=== PATIENT | male | born 1980 | race Caucasian/White ===

== ENCOUNTER 2020-02-15 22:49 | Emergency (ER) | payer OTHER ==
[~2020-02-15] VITALS: Ht 182.9 cm; Wt 81.6 kg
[2020-02-15 23:33] VITALS: BP 115/75
--- NOTE | 2020-02-15 23:41 | NUR ---
PT LEFT BEFORE RECEIVING DICHARGE INSTRUCTIONS
== END 2020-02-15 23:42 | disposition home or self-care (01) ==
LOC: ER 22:49
DX: T63.391A Toxic effect of venom of other spider, accidental (unintentional), initial encounter (principal); L03.114 Cellulitis of left upper limb; Y92.89 Other specified places as the place of occurrence of the external cause